=== PATIENT | male | born 1935 | race Two or more races ===

== ENCOUNTER 2017-10-04 20:40 | Inpatient (IN) | payer OTHER ==
[~2017-10-04] VITALS: Ht 167.6 cm; Wt 56.7 kg
[~2017-10-04 20:40] MED LIST: ASA81 MG PO; ATENOLOL25 MG PO; ATORVASTATIN CA10 MG PO; CARDIDOPA PO; COMTAN200 MG PO; GABAPENTIN400 MG PO; LOSARTAN-HCTZ1 EAC1 PO; TOLTERODINE TART2 MG PO
[2017-10-10] MEDS ORDERED: TAMSULOSIN HCL0.4 MG PO (12:55)
[2017-10-10] MEDS ORDERED: LEVAQUIN500 MG PO (12:55)
== END 2017-10-10 14:15 | disposition home or self-care (01) | DRG 728 ==
LOC: ER 20:40 → SEC-K 10-05 10:45 → MEDI 10-05 10:45
PROC: 3E0F7GC Introduction of Other Therapeutic Substance into Respiratory Tract, Via Natural or Artificial Opening (ICD-10-PCS; principal; 2017-10-05)
PROC: 4A033R1 Measurement of Arterial Saturation, Peripheral, Percutaneous Approach (ICD-10-PCS; 2017-10-05)
DX: N45.1 Epididymitis (principal); J98.11 Atelectasis; N43.2 Other hydrocele; G20 Parkinson's disease; F02.80 Dementia in other diseases classified elsewhere, unspecified severity, without behavioral disturbance, psychotic disturbance, mood disturbance, and anxiety; I10 Essential (primary) hypertension; I25.10 Atherosclerotic heart disease of native coronary artery without angina pectoris; E78.00 Pure hypercholesterolemia, unspecified; I95.1 Orthostatic hypotension

== ENCOUNTER 2018-11-21 11:39 | Outpatient (CLI) | payer OTHER ==
[~2018-11-21 11:39] MED LIST changes: +LEVAQUIN500 MG PO; +TAMSULOSIN HCL0.4 MG PO
== END 2018-11-21 13:11 | disposition home or self-care (01) ==
LOC: NUCLEAR 11:39
DX: I67.89 Other cerebrovascular disease (principal)

== ENCOUNTER 2022-11-29 15:03 | Inpatient (IN) | payer OTHER ==
[~2022-11-29] VITALS: Ht 167.6 cm; Wt 73.5 kg
--- NOTE | 2022-11-29 15:36 | NUR ---
SE RECIBE PTE ALERTA Y ORIENTADO DESORIENTADO X3 FAMILIAR REFIERE VARIOS SYNCOPE HACE VARIOS SNOWDEN, FAMILIAR REFIERE QUE JENNINGS DR. GINA SUNSHINE JOEY NUEROLOGO. PTE TIENE PROBLEMAS A LOS RINONES Y ES HIPERTENSO. SE BALDEMAR VITALES Y SE RAHUL EN ANASTASIA 13.
--- NOTE | 2022-11-29 16:38 | NUR ---
SE ORIENTA PTE Y FAMILIAR SOBRE TX MEDICO EL CUAL REFIERE ENTENDER.SE LE EXTRAEN MUESTRAS BAJO MEDIDAS ASEPTICAS,SE ADMINISTRA MEDICAMENTO TIMO ORDEN MEDICA.SE NOTIFICA PLACA Y CT.
--- NOTE | 2022-11-29 16:39 | NUR ---
SE NOTIFICA DOROTHY CUTLER.
--- NOTE | 2022-11-29 18:26 | NUR ---
SE RECIBE PTE MASCULINO SOMNOLIENTO DE AREA DE OBSERVACION, SE UBICA EN CAMA #3 DE UNIDAD DE CRITICO. SE CONECTA A MONITOR CARDIACO Y OXIMETRIA DE PULSO CONTINUA. PTE ASISTIDO CON CANULA NASAL A 3LT/MIN, TOLERANDO AL MOMENTO. VENOPUNCION EN ANTEBRAZO L+ CON ANGIO #18, PATENTE JAMESON DE EDEMA Y ERITEMA EN H/L. PTE ORINANDO ESPONTANEO, EN COMPANIA DE FAMILIAR, AL CUAL SE ORIENTA SOBRE PROTOCOLO DE UNIDAD Y CONTINUIDAD DE TRATAMIENTO REFIERE ENTENDER. SE RAHUL PTE EN CAMA NIVEL MAS BAJO CON BARANDAS ELEVADAS, CABECERA A 30 GRADOS Y FRENOS COLOCADOS POR SEGURIDAD. SE BALDEMAR Y REPORTAN S/V. PENDIENTE MICHELLE DE MUESTRA DE U/A Y CONSULTA CON MEDICINA INTERNA YA NOTIFICADA.
[2022-11-30] MEDS ORDERED: CITALOPRAM HBR10 MG (11:12)
[2022-11-30] MEDS ORDERED: METOPROLOL TART50 MG (11:12)
[2022-11-30] MEDS ORDERED: NORVASC2.5 MG (11:12)
[2022-11-30] MEDS ORDERED: FAMOTIDINE40 MG (11:12)
[2022-11-30] MEDS ORDERED: CARBIDOPA-LEVO1 EA11 (11:12)
[2022-11-30] MEDS ORDERED: RESTORIL15 MG (11:12)
[2022-11-30] MEDS ORDERED: ISOSORBIDE MONO30 M2 (11:12)
[2022-11-30] MEDS ORDERED: OMEPRAZOLE20 MG (11:12)
[2022-11-30] MEDS ORDERED: CLOPIDOGREL BIS75 MG (11:12)
[2022-11-30] MEDS ORDERED: RASAGILINE MES0.5 MG (11:12)
[2022-11-30] MEDS ORDERED: LOSARTAN POTAS100 MG (11:12)
[2022-11-30] MEDS ORDERED: FLONASE16 GM (11:13)
== END 2022-12-03 13:42 | disposition home or self-care (01) | DRG 281 ==
LOC: ER 15:03 → MEDI 19:56
PROVIDERS: ADMIT Internal Medicine; ATTEND Internal Medicine
PROC: 4A12X4Z Monitoring of Cardiac Electrical Activity, External Approach (ICD-10-PCS; 2022-11-29)
PROC: B345ZZZ Ultrasonography of Bilateral Common Carotid Arteries (ICD-10-PCS; 2022-11-29)
PROC: B24BZZZ Ultrasonography of Heart with Aorta (ICD-10-PCS; 2022-11-29)
PROC: BW24ZZZ Computerized Tomography (CT Scan) of Chest and Abdomen (ICD-10-PCS; 2022-11-29)
PROC: BW28ZZZ Computerized Tomography (CT Scan) of Head (ICD-10-PCS; 2022-11-29)
PROC: 30233N1 Transfusion of Nonautologous Red Blood Cells into Peripheral Vein, Percutaneous Approach (ICD-10-PCS; principal; 2022-12-01)
DX: I13.0 Hypertensive heart and chronic kidney disease with heart failure and stage 1 through stage 4 chronic kidney disease, or unspecified chronic kidney disease (principal); I21.A1 Myocardial infarction type 2; F05 Delirium due to known physiological condition; N18.4 Chronic kidney disease, stage 4 (severe); N17.8 Other acute kidney failure; I50.20 Unspecified systolic (congestive) heart failure; R09.02 Hypoxemia; G20 Parkinson's disease; D63.1 Anemia in chronic kidney disease; I25.10 Atherosclerotic heart disease of native coronary artery without angina pectoris; G47.52 REM sleep behavior disorder; E78.5 Hyperlipidemia, unspecified; R41.82 Altered mental status, unspecified; Z20.822 Contact with and (suspected) exposure to COVID-19